=== PATIENT | male | born 1950 | race Caucasian/White ===

== ENCOUNTER 2023-08-11 22:40 | Emergency (ER) | payer MEDICARE, BC ==
[2023-08-12 00:02] LABS: Bilirubin Negative (Negative); Blood, Urine Large (Negative); Glucose, Urine (Dipstick) Negative (Negative); Ketone, Urine Negative (Negative); Leukocyte Negative (Negative); Nitrite Negative (Negative); Protein, Urine (Dipstick) Negative (Neg-Trace); Urobilinogen 0.2 mg/dL (Less than 2); pH, Urine 5.5 (5.0-9.0)
[2023-08-12 00:05] LABS: Clarity Clear (Clear); Specific Gravity, Urine 1.007 (1.002-1.036)
[2023-08-12 00:10] LABS: CAUTI Indications for Culture Dysuria,urgency,freq; WBC/HPF 0-3 HPF (0-3)
[2023-08-12 00:11] LABS: Urine Culture Reflex No No
== END 2023-08-12 00:55 | disposition home or self-care (01) ==
LOC: ERS 22:40
DX: R33.9 Retention of urine, unspecified (principal); N40.0 Benign prostatic hyperplasia without lower urinary tract symptoms
CPT/HCPCS: 51702; 81001; 87086